=== PATIENT | female | born 1965 | race African-American/Black ===

== ENCOUNTER 2019-05-12 14:11 | Emergency (ER) | payer OTHER ==
[2019-05-12] MEDS ORDERED: Naloxone 0.4 mg/mL 1mL Vial IVP STA (14:15)
--- NOTE | 2019-05-12 14:45 | ED Physician Chart ---
ED Chief Complaint/HPI - Patient Information Date Seen:: 05/12/19 Time Seen:: 14:39 Chief Complaint:: chest pain History of Present Illness:: this is a 54 yo female from the [facility] bib her son unable to walk having severe chest pain. she stated that she has had a heart attack in the past. she states that she is diabetic. she smokes and smoke thc, she complains of severe chest wall, nausea, vomiting. Allergies:: Allergies Allergy/AdvReac Type Severity Reaction Status Date / Time No Known Allergies Allergy Verified 05/12/19 14:27 Vitals:: Vital Signs - 8 hr 05/12/19 14:27 Temp 97.5 F HR 69 RR 20 BP 170/101 O2 Sat % 97 Historian:: Patient, Family Member (son) Review:: Nurse's Note Reviewed ED Review of Systems - Review of Systems General/Constitutional: No fever, No chills, No weight loss, No weakness, No diaphoresis, No edema, No loss of appetite Skin: No skin lesions, No rash, No bruising Head: No headache, No light-headedness Eyes: No loss of vision, No pain, No diplopia ENT: No earache, No nasal drainage, No sore throat, No tinnitus Neck: No neck pain, No swelling, No thyromegaly, No stiffness, No mass noted Cardio Vascular: Chest pain, No palpitations, No PND, No orthopnea, No edema Pulmonary: No SOB, No cough, No sputum, No wheezing GI: Nausea, Vomiting, No vomiting, No diarrhea, No pain, No melena, No hematochezia, No constipation, No hematemesis G/U: No dysuria, No frequency, No hematuria Musculoskeletal: No bone or joint pain, No back pain, No muscle pain Endocrine: No polyuria, No polydipsia Psychiatric: No prior psych history, No depression, No anxiety, No suicidal ideation Hematopoietic: No bruising, No lymphadenopathy Allergic/Immuno: No urticaria, No angioedema Neurological: No syncope, No focal symptoms, No weakness, No paresthesia, No headache, No seizure, No dizziness, No confusion, No vertigo ED Past Medical History - Past Medical History Obtainable: Yes Past Medical History: HTN, DM, CAD Family History: Heart disease, HTN (mother) Social History: Smoker, No Alcohol, Illicit Drug Use (thc) Surgical History: (one ), other (abdominal surgery for colitis) ED Physical Exam - Physical Examination General/Constitutional: Awake, Well-developed, well-nourished, Alert, No distress, GCS 15, Non-toxic appearing, Ambulatory Head: Atraumatic Eyes: Lids, conjuctiva normal, PERRL, EOMI Skin: Nl inspection, No rash, No skin lesions, No ecchymosis, Well hydrated, No lymphadenopathy ENMT: External ears, nose nl, Nasal exam nl, Lips, teeth, gums nl Neck: Nontender, Full ROM w/o pain, No JVD, No nuchal rigidity, No bruit, No mass, No stridor Respiratory: Nl effort/Exclusion, Clear to Auscultation, No Wheeze/Rhonchi/Rales Cardio Vascular: RRR (tachycardia), No murmur, gallop, rubs, NL S1 S2 GI: No tenderness/rebounding/guarding, No organomegaly, No hernia, Normal BS's, Nondistended, No mass/bruits, No McBurney tenderness : No CVA tenderness Extremities: No tenderness or effusion, Full ROM, normal strength in all extremities, No edema, Normal digits & nails Neuro/Psych: Alert/oriented, DTR's symmetric, Normal sensory exam, Normal motor strength, Judgement/insight normal, Mood normal, Normal gait, No focal deficits Misc: Normal back, No paraspinal tenderness ED Labs/Radiology/EKG Results - Lab Results Results: Laboratory Tests 05/12/19 14:26 POC Glucose 448 H Abnormal Lab Results 05/12/19 05/12/19 05/12/19 14:26 14:35 14:35 WBC RBC Hgb Hct MCV MCH MCHC Differential RDW Plt Count MPV Add Manual Diff PT 9.8 INR 0.94 PTT (Actin FS) 29.4 Sodium Potassium Chloride Carbon Dioxide Anion Gap BUN Creatinine Est GFR ( Amer) Est GFR (Non-Af Amer) BUN/Creatinine Ratio Glucose POC Glucose 448 H Calcium Total Bilirubin AST ALT Alkaline Phosphatase Creatine Kinase Troponin I 0.01 Total Protein Albumin Globulin Albumin/Globulin Ratio 05/12/19 05/12/19 14:35 14:35 WBC 12.4 H RBC 4.77 Hgb 14.5 Hct 43.5 MCV 91.2 MCH 30.5 MCHC Differential 33.4 RDW 13.9 Plt Count 406 H MPV 8.3 Add Manual Diff YES PT INR PTT (Actin FS) Sodium 133 L Potassium 3.4 L Chloride 99 Carbon Dioxide 19.8 L Anion Gap 17.6 H BUN 13 Creatinine 0.9 Est GFR ( Amer) > 60.0 Est GFR (Non-Af Amer) > 60.0 BUN/Creatinine Ratio 14.4 Glucose 484 H* POC Glucose Calcium 9.8 Total Bilirubin 0.5 AST 13 ALT 19 Alkaline Phosphatase 65 Creatine Kinase 352 H Troponin I Total Protein 7.2 Albumin 4.5 Globulin 2.7 Albumin/Globulin Ratio 1.7 - Radiology Results Results: chest x-ray = nad - EKG Interpretations EKG Time:: 14:21 Rate & Rhythm: rate = 92, sinus [place]: right axis Intervals: st depresson in lead [address] elevations in 2,3,avf Comments:: acute stemi ED Assessment - Assessment General Assessment: acute myocardial infraction Critical Care Time: 37 minutes Excludes all billable procedures: Yes This condition life threatening/high prob of deterioration: Yes ED Septic Shock - . Is Septic Shock (SBP<90, OR Lactate>4 mmol\L) present?: No - <6hrs of presentation: Vital Signs: Vital Signs - 8 hr 05/12/19 14:27 Temp 97.5 F HR 69 RR 20 BP 170/101 O2 Sat % 97 ED Reassessment (Disposition) - Reassessment Reassessment Condition:: Improved - Diagnosis Diagnosis:: acute myocardial infraction - Aftercare/Follow up Instructions Notes:: 911 called [facility]..Karlene.auth number [phone] - Patient Disposition Discharge/Transfer:: Acute Care (other hosp) (transfered to [facility]) Accepting Physician:: dr Talya lion at [facility] Discussion with Medical Provider:: stemi transfer Transport Method:: ACLS Admitted to:: ICU Condition at Disposition:: Critical
[2019-05-12 14:47] LABS: MEAN CORPUSCULAR HEMOGLOBIN 30.5 pg (27.0-31.0)
[2019-05-12 14:55] LABS: INR 0.94 (0.5-1.4)
[2019-05-12 14:58] LABS: ALB/GLOB RATIO 1.7 (1.0-1.8); ALBUMIN 4.5 gm/dL (3.7-5.3); ALKALINE PHOSPHATASE 65 U/L (34-104); ANION GAP 17.6 (7.0-16.0); BILIRUBIN,TOTAL 0.5 mg/dL (0.3-1.0); BUN - UREA NITROGEN 13 mg/dL (7-25); CALCIUM SERUM 9.8 mg/dL (8.6-10.3); CARBON DIOXIDE 19.8 mEq/L (21.0-31.0); CHLORIDE 99 mEq/L (98-107); CREATININE - SERUM 0.9 mg/dL (0.6-1.2); CREATININE KINASE 352 U/L (30-223); GFR AFRICAN-AMERICAN > 60.0 ml/min (>90); GFR NON AFRICAN-AMERICAN > 60.0 ml/min; POTASSIUM SERUM 3.4 mEq/L (3.5-5.1); SGOT 13 U/L (13-39); SGPT/ALT 19 U/L (7-52); SODIUM SERUM 133 mEq/L (136-145); TOTAL PROTEIN,SERUM 7.2 gm/dL (6.0-8.3)
[2019-05-12 14:59] LABS: HEMATOCRIT 43.5 % (41.0-60); HEMOGLOBIN 14.5 gm/dL (12-16); MEAN CELL VOLUME 91.2 fl (81-100); MEAN CORPUSCULAR HGB CONC 33.4 pg (28.0-36.0); PLATELET COUNT 406 Th/cmm (150-400); RED BLOOD COUNT 4.77 Mil/cmm (3.80-5.10); RED CELL DISTRIBUTION WIDTH 13.9 % (11.5-20.0); WHITE BLOOD COUNT 12.4 Th/cmm (4.8-10.8)
[2019-05-12 15:05] LABS: GLUCOSE 484 mg/dL (70-105)
[2019-05-12 15:53] LABS: BAND NEUTROPHILE 1 % (0-10); BASOPHIL 0 % (0-3); EOSINOPHIL 0 % (0-5); LYMPHOCYTE 36 % (20-50); MONOCYTE 3 % (2-10); NEUTROPHILS 70 % (40-80)
[2019-05-13 08:11] LABS: A1C 8.6 % (4.8-5.6)
--- NOTE | 2019-05-13 10:58 | Diagnostic Imaging Report ---
CHEST X-RAY: AP view INDICATION: pain COMPARISON: None FINDINGS: There is mild elevation of right hemidiaphragm. Increased bilateral lower lung zone lung markings are noted. There is no focal consolidation or pleural effusions The heart is normal in size. The osseous structures are intact. IMPRESSION: Increased bilateral lower lung zone lung markings. Findings may be due to atelectasis or scarring. No focal consolidation is identified.
== END 2019-05-12 14:42 | disposition short-term general hospital (02) ==
LOC: ER 14:11
DX: I21.9 Acute myocardial infarction, unspecified (principal); I10 Essential (primary) hypertension; I25.10 Atherosclerotic heart disease of native coronary artery without angina pectoris; E11.9 Type 2 diabetes mellitus without complications; F17.200 Nicotine dependence, unspecified, uncomplicated; Z98.890 Other specified postprocedural states
CPT/HCPCS: 99285; 96374; 96375; 93005; 71045; 84484; 36415; 36416; 82948; 84443; 86592; 85007; 85025; 85610; 85730; 82550; 82553; 83036; 80053; J2060; J2405; J7030